=== PATIENT | female | born 1990 | race Caucasian/White ===

== ENCOUNTER 2023-03-22 10:03 | Emergency (ER) | payer OTHER ==
[~2023-03-22] VITALS: Ht 154.9 cm; Wt 63.6 kg
[2023-03-22 10:12] VITALS: BP 115/61
== END 2023-03-22 10:24 | disposition left against medical advice (07) ==
LOC: EMS 10:03
DX: Z53.21 Procedure and treatment not carried out due to patient leaving prior to being seen by health care provider (principal)
CPT/HCPCS: 99281; Z7502